=== PATIENT | male | born 1950 ===

== ENCOUNTER → 2020-05-22 | Outpatient (CLI) | payer MEDICARE, OTHER ==
--- NOTE | 2020-05-23 13:06 | SLEEP ---
DATE OF STUDY: 05/22/2020 HOME POLYSOMNOGRAM OBJECTIVE: The patient is a 69-year-old male with excessive sleepiness. Bonaparte sleep score is 16. Height 67 inches, weight 215 pounds, body mass index 33.7. INTERPRETATION: There are 263 obstructive apneas, 5 hypopneas for an overall apnea-hypopnea index of 45.1 events per hour of sleep. The minimum oxygen saturation is 70 events per hour. The highest heart rate is 145 beats per minute. IMPRESSION: Abnormal home polysomnogram showing severe obstructive sleep apnea and hypopnea. RECOMMENDATIONS: The patient should return for an in-lab CPAP titration. Alternatively, he could be empirically started on a variable CPAP machine, but given the severity of apnea, in-lab is preferred. Thank you for letting us help with the patient's care. TOÑA HENDRIX MD DR: MIGNON/gerri JOB#: [id number] / [id number] Jackie Singh MD
== END ==
LOC: RT 08:12
PROVIDERS: ATTEND Family Medicine
DX: G47.33 Obstructive sleep apnea (adult) (pediatric) (principal); G47.34 Idiopathic sleep related nonobstructive alveolar hypoventilation
CPT/HCPCS: G0399

== ENCOUNTER → 2020-06-18 | Outpatient (CLI) | payer OTHER ==
[~2020-06-18] MED LIST: ZOLPIDEM 5 MG TABLET. PO ONE
== END ==
LOC: RT 19:01
PROVIDERS: ATTEND Family Medicine
DX: G47.33 Obstructive sleep apnea (adult) (pediatric) (principal)
CPT/HCPCS: 95811